=== PATIENT | male | born 1970 | race American Indian/Alaskan Native ===

== ENCOUNTER 2020-03-16 08:21 | Emergency (ER) | payer SELFPAY ==
[2020-03-16] MEDS ORDERED: cloNIDine 0.2 MG TAB PO ONE (08:45)
[2020-03-16] MEDS ORDERED: cloNIDine 0.2 MG TAB ONE (08:47)
[2020-03-16 09:00] LABS: Basophils % (Auto) 0.4 % (0.0-1.8); Eosinophils % (Auto) 0.5 % (0.0-4.3); Hematocrit 43.2 % (35.5-45.6); Hemoglobin 14.5 gm/dl (11.8-15.2); Lymphocytes # (Auto) 2.6 K/mm3 (1.2-5.4); Lymphocytes % (Auto) 45.5 % (13.4-35.0); Mean Corpuscular HGB Conc 34 % (32-34); Mean Corpuscular Volume 91 fl (84-94); Monocytes # (Auto) 0.6 K/mm3 (0.0-0.8); Monocytes % (Auto) 10.2 % (0.0-7.3); Platelet Count 309 K/mm3 (140-440); Red Blood Count 4.76 M/mm3 (3.65-5.03); Red Cell Distribution Width 13.3 % (13.2-15.2)
--- NOTE | 2020-03-16 09:15 | Cat Scan Report ---
CT HEAD WITHOUT CONTRAST INDICATION / CLINICAL INFORMATION: dizzy. TECHNIQUE: Axial imaging performed from the skull apex through the skull base without the use of cont rast. Sagittal and coronal reformatted images. All CT scans at this location are performed using CT dose reduction for ALARA by means of automated exposure control. COMPARISON: None available. FINDINGS: CEREBRAL PARENCHYMA: No significant abnormality. No acute territorial infarct. HEMORRHAGE: None. EXTRA-AXIAL SPACES: Normal in size and morphology for the patient's age. VENTRICULAR SYSTEM: Normal in size and morphology for the patient's age. MIDLINE SHIFT OR HERNIATION: None. CEREBELLUM / BRAINSTEM: No significant abnormality. CALVARIUM: No significant abnormality. ORBITS: Normal as visualized. PARANASAL SINUSES / MASTOID AIR CELLS: Normal as visualized. SOFT TISSUES of HEAD: No significant abnormality. ADDITIONAL FINDINGS: None. IMPRESSION: No acute intracranial abnormality. Signer Name: Tyrell Martinez Jr, MD Signed: 03/16/2020 9:11 AM Workstation Name: [id number]
[2020-03-16 09:23] LABS: BUN/Creatinine Ratio 12; Blood Urea Nitrogen 12 mg/dL (9-20); Calcium 9.9 mg/dL (8.4-10.2); Hemolysis Index 6
--- NOTE | 2020-03-16 09:35 | Emergency Department Report ---
ED Dizziness HPI - General Chief Complaint: High BP Stated Complaint: BP HIGH Time Seen by Provider: 03/16/20 08:56 Source: patient Mode of arrival: Ambulatory Limitations: No Limitations - History of Present Illness Initial Comments: 49-year-old male with history of hypertension presents to ED for elevated blood pressure. Patient states he has been mostly noncompliant with his blood pressure medications. 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 Patient states 2 days ago, he had a near syncopal episode while in the [facility]. Patient states he attributed this to the fact that he had not yet eaten, and had been drinking the previous night. Patient states his vision went dark, he felt dizzy, felt like he was going to pass out, but he did not. Patient states he has not had any further episodes like this since 2 days ago. He denies headache, nausea or vomiting, chest pain, shortness of breath. He also denies fever, cough, contact with anyone who was tested positive for COVID-19. Patient states since receiving prescriptions for amlodipine and HCTZ he has been taking the medications, but states he took his blood pressure on yesterday and it was elevated, so he decided to come to the ED today. 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 Patient reports he has also been under lots of stress, which may be contributing to his blood pressure elevation. Patient states he just learned that his ex-'s cancer has returned, and they have to tell his 2 children about it. Patient states his father is also COVID positive and in a longterm, and he has been unable to visit him. Patient also states he had an aunt in [place] that recently of COVID-19. Patient denies any drug use. Complaint: near syncope -: days(s) (2) Timing: now resolved Description: near-syncope Severity: moderate Improves With: rehydration Worsens With: nothing Associated Symptoms: diaphoresis. denies: chest pain, cough, fever/chills, shortness of breath, weakness - Related Data Previous Rx's Medication Instructions Recorded Last Taken Type hydroCHLOROthiazide [HCTZ] 25 mg PO QDAY #30 tablet 03/16/20 Unknown Rx Allergies Allergy/AdvReac Type Severity Reaction Status Date / Time Penicillins Allergy Unknown Verified 03/16/20 08:28 ED Review of Systems ROS: Stated complaint: BP HIGH Other details as noted in HPI Comment: All other systems reviewed and negative Constitutional: denies: chills, fever Respiratory: denies: cough, shortness of breath Cardiovascular: denies: chest pain Gastrointestinal: denies: nausea, vomiting Neurological: denies: headache, weakness, numbness, vertigo ED Past Medical Hx - Past Medical History Previous Medical History?: Yes Hx Hypertension: Yes - Surgical History Past Surgical History?: No Additional Surgical History: L ACL repair. R knee arthroscopic surgery - Social History Smoking Status: Never Smoker Substance Use Type: None - Medications Home Medications: Home Medications Medication Instructions Recorded Confirmed Last Taken Type hydroCHLOROthiazide [HCTZ] 25 mg PO QDAY #30 tablet 03/16/20 Unknown Rx ED Physical Exam - General Limitations: No Limitations General appearance: alert, in no apparent distress - Head Head exam: Present: atraumatic, normocephalic - Eye Eye exam: Present: normal appearance, PERRL, EOMI - ENT ENT exam: Present: mucous membranes moist - Neck Neck exam: Present: normal inspection - Respiratory Respiratory exam: Present: normal lung sounds bilaterally. Absent: respiratory distress - Cardiovascular Cardiovascular Exam: Present: regular rate, normal rhythm - GI/Abdominal GI/Abdominal exam: Present: soft. Absent: distended, tenderness - Extremities Exam Extremities exam: Present: normal inspection - Neurological Exam Neurological exam: Present: alert, oriented X3, CN II-XII intact, normal gait. Absent: motor sensory deficit - Psychiatric Psychiatric exam: Present: normal affect, normal mood - Skin Skin exam: Present: warm, dry, intact, normal color ED Course Vital Signs 03/16/20 03/16/20 03/16/20 08:29 08:50 09:00 Temperature 98.8 F Pulse Rate 103 H 103 H Respiratory 20 Rate Blood Pressure 208/108 208/108 O2 Sat by Pulse 98 99 Oximetry 03/16/20 03/16/20 03/16/20 09:32 09:36 09:56 Temperature Pulse Rate Respiratory Rate Blood Pressure 166/120 149/96 O2 Sat by Pulse 98 99 98 Oximetry 03/16/20 10:00 Temperature Pulse Rate Respiratory Rate Blood Pressure 140/87 O2 Sat by Pulse 95 Oximetry ED Medical Decision Making - Lab Data Result diagrams: 03/16/20 08:50 03/16/20 08:50 - EKG Data -: EKG Interpreted by Me EKG shows normal: sinus rhythm, axis, intervals, QRS complexes, ST-T waves Rate: normal - Radiology Data Radiology results: report reviewed, image reviewed - Medical Decision Making - pt comfortable, nontoxic-appearing, not diaphoretic - BP improved w/ Clonidine - EKG unremarkable, troponin negative - CT Head shows no acute changes; pt A&O x 3; neuro exam normal - spoke w/ pt regarding medication compliance, ways in which to decrease stress, and healthy eating - outpt f/u advised; return precautions given Critical care attestation.: If time is entered above; I have spent that time in minutes in the direct care of this critically ill patient, excluding procedure time. ED Disposition Clinical Impression: Uncontrolled hypertension, Near syncope Disposition: DC-01 TO HOME OR SELFCARE Is pt being admited?: No Condition: Stable Instructions: Heart Healthy Diet (ED), DASH Eating Plan (ED), Hypertension (ED), Near Syncope (ED) Prescriptions: hydroCHLOROthiazide [HCTZ] 25 mg PO QDAY #30 tablet Referrals: [facility] [Provider Group] - 3-5 Days ZAHIRA CHANDLER MD [Staff Physician] - 3-5 Days
[2020-03-17 13:13] VITALS: BP 140/87
== END 2020-03-16 10:07 | disposition home or self-care (01) ==
LOC: ED 08:21
DX: I10 Essential (primary) hypertension (principal); R55 Syncope and collapse; Z98.890 Other specified postprocedural states; Z79.899 Other long term (current) drug therapy; Z88.0 Allergy status to penicillin
CPT/HCPCS: 36415; 70450; 80048; 84484; 85025; 93005

== ENCOUNTER 2020-11-30 10:22 | Emergency (ER) | payer SELFPAY ==
--- NOTE | 2020-11-30 11:11 | Event Note ---
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 Further treatment and workup at subsequent clinical providers discretion. Patient/guardian urged not to elope from the ED as their condition may be serious if not clinically assessed and managed. Initial orders include: HTN urgency/CP orders
--- NOTE | 2020-11-30 12:04 | XRay Report ---
CHEST 2 VIEWS INDICATION / CLINICAL INFORMATION: Chest Pain. COMPARISON: None available. FINDINGS: SUPPORT DEVICES: None. HEART / MEDIASTINUM: No significant abnormality. LUNGS / PLEURA: No significant pulmonary or pleural abnormality. No pneumothorax. ADDITIONAL FINDINGS: No significant additional findings. IMPRESSION: 1. No acute findings. Signer Name: Betito Sharif MD Signed: 11/30/2020 12:00 PM Workstation Name: [id number]
[2020-11-30 12:16] LABS: Basophils % (Auto) 0.3 % (0.0-1.8); Eosinophils % (Auto) 0.8 % (0.0-4.3); Hematocrit 43.9 % (35.5-45.6); Hemoglobin 14.7 gm/dl (11.8-15.2); Lymphocytes # (Auto) 2.4 K/mm3 (1.2-5.4); Lymphocytes % (Auto) 43.7 % (13.4-35.0); Mean Corpuscular HGB Conc 33 % (32-34); Mean Corpuscular Volume 93 fl (84-94); Monocytes # (Auto) 0.5 K/mm3 (0.0-0.8); Monocytes % (Auto) 9.3 % (0.0-7.3); Platelet Count 300 K/mm3 (140-440); Red Blood Count 4.75 M/mm3 (3.65-5.03); Red Cell Distribution Width 13.7 % (13.2-15.2)
[2020-11-30 12:27] LABS: INR 0.96 (0.87-1.13); Partial Thromboplastin Time 32.9 Sec. (24.2-36.6)
[2020-11-30 12:39] LABS: Alanine Aminotransferase 30 units/L (7-56); Albumin 4.3 g/dL (3.9-5); BUN/Creatinine Ratio 11; Blood Urea Nitrogen 10 mg/dL (9-20); Hemolysis Index 22
--- NOTE | 2020-11-30 12:42 | Cat Scan Report ---
CT BRAIN: 11/30/2020 INDICATION / CLINICAL INFORMATION: headache, right arm weakness, HTN urgency. COMPARISON: 03/16/2020 FINDINGS: BRAIN/INTRACRANIAL STRUCTURES: Unenhanced CT images of the brain demonstrate no evidence of acute int racranial abnormality. Ventricles and sulci are normal in size and shape. There is no evidence of ischemic injury, hemorrhage, or mass. There are no abnormal extra-axial fluid collections. There is been no change when compared to the prior exam from 03/16/2020. EXTRACRANIAL STRUCTURES: Unremarkable. IMPRESSION: No acute abnormality. All CT scans at this location are performed using dose reduction to ALARA by means of automated expos ure control. Signer Name: Kumar English MD Signed: 11/30/2020 12:37 PM Workstation Name: [email or web address]
[2020-11-30 12:56] VITALS: BP 193/123
--- NOTE | 2020-11-30 13:34 | Emergency Department Report ---
ED General Adult HPI - General Chief complaint: Neuro Symptoms/Deficit Stated complaint: RT SIDE WEAK/DISORIENTED Time Seen by Provider: 11/30/20 11:07 Source: patient Mode of arrival: Ambulatory Limitations: No Limitations - History of Present Illness Initial comments: The patient presents to the emergency department with a chief complaint of right shoulder pain that started 2 weeks ago. Patient states the pain radiated into his right arm stopping at the elbow. 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 Patient states this morning he woke up with right hand numbness and weakness. Patient still has pain in the right arm as well. -: Gradual Location: upper extremity Radiation: extremity Severity scale (0 -10): 7 Quality: aching Consistency: constant Improves with: rest Worsens with: movement Associated Symptoms: denies other symptoms Treatments Prior to Arrival: none - Related Data Previous Rx's Medication Instructions Recorded Last Taken Type hydroCHLOROthiazide [HCTZ] 25 mg PO QDAY #30 tablet 03/16/20 Unknown Rx Acetaminophen/Codeine [Tylenol 1 tab PO Q6H PRN #15 tab 11/30/20 Unknown Rx /Codeine # 3 tab] Ibuprofen [Motrin] 600 mg PO Q8H PRN #30 tablet 11/30/20 Unknown Rx amLODIPine [Norvasc] 10 mg PO DAILY #30 tab 11/30/20 Unknown Rx hydroCHLOROthiazide [Hctz] 12.5 mg PO QDAY #30 capsule 11/30/20 Unknown Rx predniSONE [Deltasone] 20 mg PO DAILY #15 tablet 11/30/20 Unknown Rx Allergies Allergy/AdvReac Type Severity Reaction Status Date / Time Penicillins Allergy Unknown Verified 03/16/20 08:28 ED Review of Systems ROS: Stated complaint: RT SIDE WEAK/DISORIENTED Other details as noted in HPI Comment: All other systems reviewed and negative Constitutional: denies: chills, fever Eyes: denies: eye pain, eye discharge, vision change ENT: denies: ear pain, throat pain Respiratory: denies: cough, shortness of breath, wheezing Cardiovascular: denies: chest pain, palpitations Endocrine: no symptoms reported Gastrointestinal: denies: abdominal pain, nausea, diarrhea Genitourinary: denies: urgency, dysuria Musculoskeletal: denies: back pain, joint swelling, arthralgia Skin: denies: rash, lesions Neurological: denies: headache, weakness, paresthesias Psychiatric: denies: anxiety, depression Hematological/Lymphatic: denies: easy bleeding, easy bruising ED Past Medical Hx - Past Medical History Previous Medical History?: Yes Hx Hypertension: Yes - Surgical History Past Surgical History?: Yes Additional Surgical History: L ACL repair. R knee arthroscopic surgery - Social History Smoking Status: Never Smoker Substance Use Type: None - Medications Home Medications: Home Medications Medication Instructions Recorded Confirmed Last Taken Type hydroCHLOROthiazide [HCTZ] 25 mg PO QDAY #30 tablet 03/16/20 Unknown Rx Acetaminophen/Codeine [Tylenol 1 tab PO Q6H PRN #15 tab 11/30/20 Unknown Rx /Codeine # 3 tab] Ibuprofen [Motrin] 600 mg PO Q8H PRN #30 tablet 11/30/20 Unknown Rx amLODIPine [Norvasc] 10 mg PO DAILY #30 tab 11/30/20 Unknown Rx hydroCHLOROthiazide [Hctz] 12.5 mg PO QDAY #30 capsule 11/30/20 Unknown Rx predniSONE [Deltasone] 20 mg PO DAILY #15 tablet 11/30/20 Unknown Rx ED Physical Exam - General Limitations: No Limitations General appearance: alert, in no apparent distress - Head Head exam: Present: atraumatic, normocephalic - Eye Eye exam: Present: normal appearance, PERRL, EOMI - ENT ENT exam: Present: mucous membranes moist - Neck Neck exam: Present: other (Patient has spasms to the right deltoid on exam. Tapping of the midline cervical spine recreate symptoms into the right hand.) - Respiratory Respiratory exam: Present: normal lung sounds bilaterally. Absent: respiratory distress - Cardiovascular Cardiovascular Exam: Present: regular rate, normal rhythm. Absent: systolic murmur, diastolic murmur, rubs, gallop - GI/Abdominal GI/Abdominal exam: Present: soft, normal bowel sounds - Rectal Rectal exam: Present: deferred - Extremities Exam Extremities exam: Present: other (Patient has good strength of the right hand when compared to the left) - Back Exam Back exam: Present: normal inspection - Neurological Exam Neurological exam: Present: alert, oriented X3, CN II-XII intact, motor sensory deficit, reflexes normal - Psychiatric Psychiatric exam: Present: normal affect, normal mood - Skin Skin exam: Present: warm, dry, intact, normal color. Absent: rash ED Course Vital Signs 11/30/20 11/30/20 11/30/20 10:29 11:12 12:55 Temperature 97.9 F Pulse Rate 86 82 Respiratory 18 Rate Blood Pressure 179/103 [Left] Blood Pressure 219/122 193/123 [Right] O2 Sat by Pulse 98 97 Oximetry ED Medical Decision Making - Lab Data Result diagrams: 11/30/20 11:27 11/30/20 11:27 Lab Results 11/30/20 11/30/20 11/30/20 Range/Units 11:27 11:27 11:27 WBC 5.4 (4.5-11.0) K/mm3 RBC 4.75 (3.65-5.03) M/mm3 Hgb 14.7 (11.8-15.2) gm/dl Hct 43.9 (35.5-45.6) % MCV 93 (84-94) fl MCH 31 (28-32) pg MCHC 33 (32-34) % RDW 13.7 (13.2-15.2) % Plt Count 300 (140-440) K/mm3 Lymph % (Auto) 43.7 H (13.4-35.0) % Caroline % (Auto) 9.3 H (0.0-7.3) % Eos % (Auto) 0.8 (0.0-4.3) % Baso % (Auto) 0.3 (0.0-1.8) % Lymph # (Auto) 2.4 (1.2-5.4) K/mm3 Caroline # (Auto) 0.5 (0.0-0.8) K/mm3 Eos # (Auto) 0.0 (0.0-0.4) K/mm3 Baso # (Auto) 0.0 (0.0-0.1) K/mm3 Seg Neutrophils % 45.9 (40.0-70.0) % Seg Neutrophils # 2.5 (1.8-7.7) K/mm3 PT 12.7 (12.2-14.9) Sec. INR 0.96 (0.87-1.13) APTT 32.9 (24.2-36.6) Sec. Sodium 141 (137-145) mmol/L Potassium 4.0 (3.6-5.0) mmol/L Chloride 104.6 (98-107) mmol/L Carbon Dioxide 31 H (22-30) mmol/L Anion Gap 9 mmol/L BUN 10 (9-20) mg/dL Creatinine 0.9 (0.8-1.3) mg/dL Estimated GFR > 60 ml/min BUN/Creatinine Ratio 11 % Glucose 80 (75-100) mg/dL Calcium 9.0 (8.4-10.2) mg/dL Total Bilirubin 0.30 (0.1-1.2) mg/dL AST 23 (5-40) units/L ALT 30 (7-56) units/L Alkaline Phosphatase 64 (35-129) units/L Troponin T < 0.010 (0.00-0.029) ng/mL Total Protein 6.9 (6.3-8.2) g/dL Albumin 4.3 (3.9-5) g/dL Albumin/Globulin Ratio 1.7 % - EKG Data -: EKG Interpreted by Ma EKG shows normal: sinus rhythm Rate: normal - EKG Data Interpretation: other (early repol) - Radiology Data Radiology results: report reviewed - Medical Decision Making Discussed results with patient Critical care attestation.: If time is entered above; I have spent that time in minutes in the direct care of this critically ill patient, excluding procedure time. ED Disposition Clinical Impression: Cervical radiculopathy, Hypertension Disposition: TO HOME OR SELFCARE Is pt being admited?: No Does the pt Need Aspirin: No Condition: Stable Instructions: Hypertension (ED), Cervical Radiculopathy, Hypertension, Adult Additional Instructions: Please return if worse Prescriptions: amLODIPine [Norvasc] 10 mg PO DAILY #30 tab predniSONE [Deltasone] 20 mg PO DAILY #15 tablet hydroCHLOROthiazide [Hctz] 12.5 mg PO QDAY #30 capsule Ibuprofen [Motrin] 600 mg PO Q8H PRN #30 tablet PRN Reason: Pain Acetaminophen/Codeine [Tylenol /Codeine # 3 tab] 1 tab PO Q6H PRN #15 tab PRN Reason: pain Referrals: [facility], [Primary Care Provider] - 3-5 Days [facility] [Provider Group] - 3-5 Days KHALIF CASE MD [Staff Physician] - 3-5 Days CAROLEE REYES MD [Staff Physician] - 3-5 Days Time of Disposition: 13:48
--- NOTE | 2020-11-30 13:39 | Cat Scan Report ---
CT cervical spine wo con INDICATION: radiculopathy. TECHNIQUE: Axial CT images of the cervical spine were obtained. Sagittal and coronal reformatted images were pro duced. All CT scans at this location are performed using CT dose reduction for ALARA by means of auto mated exposure control. COMPARISON: None available. FINDINGS: ALIGNMENT: Normal alignment. VERTEBRAE: No fracture. Vertebral body heights are preserved. C1 and C2 are congruent. SPONDYLOSIS: No significant spinal canal stenosis present at any level. There is uncovertebral and fa cet arthropathy resulting in moderate bilateral C3-C4, bilateral C4-C5, and severe right C5-C6 forami nal narrowing. Mild left C5-C6 foraminal narrowing. SOFT TISSUES: No significant soft tissue abnormality. ADDITIONAL FINDINGS: No significant additional findings. IMPRESSION: 1. Multilevel uncovertebral facet arthropathy resulting in osseous foraminal narrowing most pronounce d at C3-C4, C4-C5, and on the right at C5-C6. Correlate for C4, C5, and right C6 nerve root symptoms . Signer Name: Faizan Atwood MD Signed: 11/30/2020 1:35 PM Workstation Name: '[email or web address]
[2020-11-30] MEDS ORDERED: amLODIPine 5 MG TAB PO ONE (13:40)
== END 2020-11-30 14:38 | disposition home or self-care (01) ==
LOC: ED 10:22
DX: M54.12 Radiculopathy, cervical region (principal); I10 Essential (primary) hypertension; Z79.899 Other long term (current) drug therapy; Z88.0 Allergy status to penicillin; Z98.890 Other specified postprocedural states
CPT/HCPCS: 36415; 70450; 71046; 72125; 80053; 84484; 85025; 85610; 85730; 93005